=== PATIENT | female | born 1940 | race Caucasian/White ===

== ENCOUNTER → 2017-05-30 | Outpatient (CLI) | payer MEDICARE, OTHER ==
--- NOTE | 2017-05-31 09:35 | WWHP ---
CHIEF COMPLAINT: The patient is here for her routine gynecologic exam and mammogram. HPI: This is a 76 year old G4, P4, 0-0-3 with an LMP of approximately 1997. The patient is without gynecologic complaints and denies any post menopausal bleeding. PAST MEDICAL HISTORY: Chronic hypertension, hypothyroidism, elevated cholesterol, carpal tunnel syndrome, and osteoporosis. MEDICATIONS: Synthroid 75 micrograms daily, Lipitor 10 mg daily, Norvasc 10 mg daily, Advil prn, Rosibel-Milton as directed, CoQ10 100 mg daily, Vitamin D 2000 units daily. ALLERGIES: NITROGLYCERINE, CODEINE, DIAZEPAM, DARVOCET. PAST SURGICAL HISTORY: Previous appendectomy, shaka in the left femur, tonsillectomy, three sections, cholecystectomy, thyroidectomy, colonoscopy in 2009. 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 SOCIAL HISTORY: She denies tobacco, alcohol, and drug use. She is a and is not seeing anybody at this time and is not sexually active. FAMILY HISTORY: Is unknown since she is Adopted. REVIEW OF SYSTEMS: Weight has been stable, she denies respiratory or cardiac problems. GI: Occasional gastric reflux. She denies maltreatment or fall.ing. : She does have to get up to urinate at night and occasionally has to get to the bathroom right away with urgency, otherwise she denies any significant problems with urinary leakage. PHYSICAL EXAM: Blood pressure 136/64, height 4'11-1/2 inches, weight 138 pounds , temperature 96.1, pulse 71. This is a well developed, well nourished white female who is alert and oriented times 3, in no acute distress. HEENT: Within normal limits. Neck: Supple without mass or thyromegaly. CHEST AND LUNGS: Clear to auscultation. Heart: Regular rate and rhythm. Breasts: Without mass or discharge. There is an annular mole at approximately 9 o'clock position of the right breast. She states she has had this for many years and it's outer diameter is approximately 2.5 cm. The mole is brown and the inner section is flesh colored with an inner diameter of approximately 1 cm. Axillary Exam: Negative for adenopathy. Back: Negative for CVA tenderness. Abdomen: Soft, nontender, without palpable masses. Pelvic Exam: External genitalia reveals mild to moderate atrophy. There are approximately 3 small inclusion cysts in each labia. These each measure approximately 4 mm each. They are mobile and nontender, there is no erythema and have a benign appearance. Cervix and Vagina: Reveals moderate atrophy without lesions. There is no evidence of prolapse. Bimanual exam is negative for mass or tenderness. Rectal/Vaginal Examination: Is negative for mass or tenderness and is negative for occult blood. Extremities: Nontender. IMPRESSION: 1. [age] old menopausal female with benign appearing vulvar inclusion cysts which she states she has had there for many years. 2. Otherwise unremarkable gynecologic exam. 3. Mole on the right breast which is annular in shape . She states she has had this for many years. PLAN: 1. PAP smear was performed. 2. Self breast examination was discussed. 3. Mammogram will be done today. 4. We have discussed the mole on the right breast. I have recommended that she follow up with her green end man, Dr. Marti in [place] for skin evaluation and evaluation fo this mole. 5. I have recommended that she check her own blood pressure at home since she does have a blood pressure cuff and I have asked her to do this on a regular basis. She will follow up with Dr. Coronado for blood pressure elevations. 6. I have recommended flu shots in the fall and she will consider this. 7. Osteoporosis management was discussed. She will follow up with her certified orthotist practice manager for bone density testing as she has done in the past. She will also talk to them about possible medications, which they have already recommended. 8. She will return in one year. ARNOLDO
--- NOTE | 2017-05-31 12:59 | MM ---
Reason for exam: screening (asymptomatic). Last mammogram was performed 2 years ago. History: Patient is postmenopausal and history of other cancer. Took estrogen for 5 years. Physical Findings: A clinical breast exam by your physician is recommended on an annual basis and results should be correlated with mammographic findings. MG 3D Screening Mammo W/Cad Bilateral CC and MLO view(s) were taken. Prior study comparison: June 04, 2015, bilateral MG screening mammo w CAD. April 11, 2013, bilateral digital screening mammo w/CAD. There are scattered fibroglandular densities. There is no discrete abnormality. ASSESSMENT: Negative, BI-RAD 1 RECOMMENDATION: Routine screening mammogram of both breasts in 1 year.
== END | disposition home or self-care (01) ==
LOC: WWCWWP 12:30
PROVIDERS: ATTEND Obstetrics & Gynecology
DX: Z12.31 Encounter for screening mammogram for malignant neoplasm of breast (principal)
CPT/HCPCS: 77063; G0202

== ENCOUNTER 2019-01-29 10:11 | Day surgery (SDC) | payer MEDICARE, OTHER ==
[2019-01-24 15:51] VITALS: BMI 18.1
[~2019-01-29 10:11] MED LIST: HYDROmorphone 0.5 MG/0.5 ML SYRINGE IVP PRN; LIDOCAINE 1% 20 ML VIAL (10MG/ML) FOR IV START INTRADERMA PRN; MIDAZOLAM 2 MG/2 ML VIAL IV PRN; Pre Op ABX Message 1 EACH MISC MISCELLANE ONE; ceFAZolin IN SWFI 2 GM/20 ML SYRINGE IVP ONE
[2019-01-29] MEDS: LACTATED RINGERS 1,000 ML IV SCH ×2 (10:50→14:42)
[2019-01-29] MEDS: ONDANSETRON 4 MG/2 ML VIAL IVP ONE ×3 (10:51→12:40)
[2019-01-29] MEDS ORDERED: DEXAMETHASONE SOD PHOSPHATE 10 MG/ML 1 ML VIAL IV ONE (10:51)
[2019-01-29] MEDS ORDERED: PROPOFOL 10 MG/ML 20 ML VIAL IV ONE (10:53)
[2019-01-29] MEDS ORDERED: MIDAZOLAM 2 MG/2 ML VIAL ONE (10:53)
[2019-01-29] MEDS ORDERED: ePHEDrine SULFATE/0.9% NACL/PF 50 MG/5 ML SYRINGE IV ONE (10:53)
[2019-01-29] MEDS ORDERED: fentaNYL (PF) 50 MCG/ML 2 ML AMP ONE (10:53)
[2019-01-29] MEDS ORDERED: LIDOCAINE 1% INJ 10MG/ML (20 ML MDV) ONE (10:53)
[2019-01-29 11:02] LABS: Glucose,Whole Blood 96 mg/dL (75-99)
[2019-01-29] MEDS ORDERED: BUPIVACAINE (PF) 0.5% 30 ML VIAL IO ONE (11:28)
[2019-01-29 12:00] VITALS: TEMP 97.2
[2019-01-29 12:03] VITALS: RESP 16
--- NOTE | 2019-01-29 13:49 | P.OP ---
Date of Procedure: 01/29/19 Preoperative Diagnosis: 1. Torn lateral meniscus left knee 2. Torn medial meniscus left knee 3. Osteoarthritis left knee Postoperative Diagnosis: 1. Torn lateral meniscus left knee 2. Torn medial meniscus left knee 3. 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 Synovitis Procedure(s) Performed: 1. Arthroscopy of the left knee with partial lateral meniscectomy (70% of meniscus excised) 2. Partial medial meniscectomy (20% of meniscus excised) 3. Chondroplasty of the medial femoral, lateral femoral, and patellofemoral compartments 4. Partial synovectomy of the medial femoral, lateral femoral, patellofemoral compartments Anesthesia: spinal Surgeon: Mitesh Bird Estimated Blood Loss (ml): 5 Pathology: none sent Condition: stable Disposition: PACU Indications for Procedure: This is a 78-year-old female that presented to my office with pain in her left knee. MRI was performed which showed a torn medial and lateral meniscus as well as osteoarthritis of her left knee. After discussing the surgical nonsurgical treatment options with her and her daughter at length, they've decided to proceed with arthroscopic debridement of her left knee, and informed consent was obtained. Operative Findings: The operative findings are consistent with a tear of the lateral meniscus, medial meniscus, grade 2-3 chondromalacia of the medial femoral and patellofemoral compartments. 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 And also synovitis. Description of Procedure: Patient was seen and evaluated in the preoperative area, the operative site was marked with a skin marker. The patient was then brought to the operating room and given 1 g of Ancef intravenously. A spinal anesthetic was administered by the anesthesia department. Tourniquet was placed on the left upper thigh and the left lower extremity was then prepped and draped in usual sterile fashion. A universal timeout was then performed confirming the patient's name, surgical site, ALLERGIES, and consent. The limb was then exsanguinated and tourniquet insufflated to 250 mmHg. Standard inferior medial and inferior lateral portals were established in the knee. The trochar was inserted in the inferolateral portal. Examination began at the patellofemoral joint. There is noted to be grade 2-3 chondral malacia the patellofemoral compartment and a moderate amount of synovitis. Next the medial compartment was visualized. There was a tear of the posterior horn of the medial meniscus. There was grade 2-3 chondral malacia the mediofemoral compartment and synovitis. The notch area was then visualized and ACL PCL were intact. The Lateral compartment was then visualized. There was a large tear of the lateral meniscus, as well as grade 4 chondral malacia changes of the lateral femoral compartment. There is also a mild amount of synovitis. Next, using an arthroscopic shaver and a biter, partial medial meniscectomy was performed stable margins. Approximately 20% of meniscus was excised. A partial lateral meniscectomy was also performed, with approximately 70% of meniscus excised. A partial synovectomy is performed the medial femoral, lateral femoral, patellofemoral compartments. Chondroplasty was also performed of the medial femoral, lateral femoral, and patellofemoral compartments of the knee. Knee was then copiously irrigated, instruments removed, incisions were closed with 4-0 nylon. 30 mL of quarter percent plain Marcaine were injected sterilely into the surgical area. A sterile dressing was then applied, and the tourniquet was released. Patient was then transferred to recovery room in stable condition.
[2019-01-29] MEDS ORDERED: PROMETHAZINE INJ 25 MG/ML 1 ML VIAL IVPB ONE (14:15)
[2019-01-29 14:34] VITALS: BP 108/66; PULSE 92
== END 2019-01-29 15:38 | disposition home or self-care (01) ==
LOC: OR 10:11
PROVIDERS: ATTEND Orthopaedic Surgery
DX: S83.282A Other tear of lateral meniscus, current injury, left knee, initial encounter (principal); S83.242A Other tear of medial meniscus, current injury, left knee, initial encounter; M65.88 Other synovitis and tenosynovitis, other site; M17.12 Unilateral primary osteoarthritis, left knee; M21.062 Valgus deformity, not elsewhere classified, left knee; E78.2 Mixed hyperlipidemia; K21.9 Gastro-esophageal reflux disease without esophagitis; E03.9 Hypothyroidism, unspecified; I10 Essential (primary) hypertension; F41.9 Anxiety disorder, unspecified; K58.9 Irritable bowel syndrome, unspecified; M81.0 Age-related osteoporosis without current pathological fracture; I25.10 Atherosclerotic heart disease of native coronary artery without angina pectoris; H91.90 Unspecified hearing loss, unspecified ear; M19.90 Unspecified osteoarthritis, unspecified site; F32.9 Major depressive disorder, single episode, unspecified; G43.909 Migraine, unspecified, not intractable, without status migrainosus; Z95.5 Presence of coronary angioplasty implant and graft; Z79.1 Long term (current) use of non-steroidal anti-inflammatories (NSAID); Z79.890 Hormone replacement therapy; Z79.891 Long term (current) use of opiate analgesic; Z79.899 Other long term (current) drug therapy; Z88.5 Allergy status to narcotic agent; Z88.8 Allergy status to other drugs, medicaments and biological substances; Z88.1 Allergy status to other antibiotic agents; Z88.0 Allergy status to penicillin
CPT/HCPCS: 29880; J2250; J1100; J2550; J2405; J2001; J3010; J2704; J1170; J0690

== ENCOUNTER → 2019-07-16 | Outpatient (CLI) | payer MEDICARE, OTHER ==
[2019-07-16 11:15] VITALS: BP 130/76; PULSE 74; RESP 18; TEMP 98; BMI 26.9
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
--- NOTE | 2019-07-17 13:30 | MM ---
Reason for exam: screening (asymptomatic). Last mammogram was performed 1 year and 1 month ago. History: Patient is postmenopausal and history of other cancer. Took estrogen for 5 years. Physical Findings: A clinical breast exam by your physician is recommended on an annual basis and results should be correlated with mammographic findings. MG 3D Screening Mammo W/Cad Bilateral CC and MLO view(s) were taken. Prior study comparison: June 05, 2018, bilateral MG 3d screening mammo w/cad. May 30, 2017, bilateral MG 3d screening mammo w/cad. The breast tissue is heterogeneously dense. This may lower the sensitivity of mammography. Asymmetric breast tissue left subareolar. Right outer skin lesion. ASSESSMENT: Benign, BI-RAD 2 RECOMMENDATION: Routine screening mammogram of both breasts in 1 year.
== END ==
LOC: WWCWWP 10:47
PROVIDERS: ATTEND Obstetrics & Gynecology
DX: Z12.31 Encounter for screening mammogram for malignant neoplasm of breast (principal); N88.8 Other specified noninflammatory disorders of cervix uteri
CPT/HCPCS: 76830; 76856; 77063; 77067

== ENCOUNTER 2020-03-10 10:06 | Day surgery (SDC) | payer MEDICARE, OTHER ==
[2020-03-05 15:06] VITALS: BMI 25.8
[~2020-03-10 10:06] MED LIST changes: -HYDROmorphone 0.5 MG/0.5 ML SYRINGE IVP PRN; +LACTATED RINGERS 1,000 ML IV SCH; +LIDOCAINE 1% (10MG/ML) FOR IV START INTRADERMA PRN; -LIDOCAINE 1% 20 ML VIAL (10MG/ML) FOR IV START INTRADERMA PRN; -MIDAZOLAM 2 MG/2 ML VIAL IV PRN; -Pre Op ABX Message 1 EACH MISC MISCELLANE ONE; -ceFAZolin IN SWFI 2 GM/20 ML SYRINGE IVP ONE
[2020-03-10] MEDS ORDERED: ONDANSETRON 4 MG/2 ML VIAL IVP ONE (10:45)
[2020-03-10] MEDS ORDERED: PROPOFOL 10 MG/ML 20 ML VIAL IV ONE (10:48)
[2020-03-10 10:51] VITALS: TEMP 98.3
[2020-03-10 10:59] LABS: Glucose,Whole Blood 91 mg/dL (75-99)
--- NOTE | 2020-03-10 11:21 | P.PCN ---
Date of Procedure: 03/10/20 Preoperative Diagnosis: GERD, abdominal pain, colon cancer screening Postoperative Diagnosis: GERD, abdominal pain, colon cancer screening, esophagitis, hiatal hernia, gastritis, diverticulosis Procedure(s) Performed: EGD with biopsy and colonoscopy Anesthesia: MAC Surgeon: Yue Alonzo Pathology: other Condition: stable Disposition: PACU Indications for Procedure: Patient presented for colon cancer screening. She does his abdominal pain and reflux. Description of Procedure: The patient's taken the endoscopy suite were gastroscope is passed per mouth to the third and fourth portions of the duodenum. The pharynx is unremarkable. The upper esophagus is without evidence of esophagitis or mass lesion. She has some mild inflammatory change at the GE junction and cold biopsies were obtained. There is evidence of a fixed hiatal/paraesophageal hernia. There is diffuse gastritis throughout the stomach with punctate areas that have bled. Multiple cold biopsies were obtained. The pylorus and duodenum were unremarkable. The villous pattern of the duodenum appears normal. She is then repositioned in a colonoscope is passed per rectum to the cecum. She had an excellent prep. There is diverticulosis noted in the sigmoid colon. There is also some diverticulosis in the ascending colon. The colon is otherwise without evidence of polyp, mass lesion, ulcer, stricture or other abnormality. A small hypertrophied anal papillae was seen on retroflexion of the scope. She tolerated the procedure without difficulty and was taken recovery room in satisfactory condition. We'll call with the report of the biopsies and a further recommendations to follow. Plan - Discharge Summary New Discharge Prescriptions: No Action amLODIPine [Norvasc] 10 mg PO HS Ubidecarenone [Co Q-10] 100 mg PO HS Atorvastatin Calcium [Lipitor] 10 mg PO HS Levothyroxine Sodium [Synthroid] 75 mcg PO DAILY Cholecalciferol (Vitamin D3) [Vitamin D3] 4,000 unit PO DAILY Meclizine [Antivert] 25 mg PO TID PRN PRN Reason: Vertigo Ascorbic Acid [Vitamin C] 1,000 mg PO DAILY Magnesium 400 mg PO DAILY Famotidine [Pepcid] 20 mg PO BID Cyanocobalamin (Vitamin B-12) [Vitamin B-12] 2,500 mcg PO DAILY Discharge Medication List Atorvastatin Calcium [Lipitor] 10 mg PO HS 06/15/16 [History] Ubidecarenone [Co Q-10] 100 mg PO HS 06/15/16 [History] amLODIPine [Norvasc] 10 mg PO HS 06/15/16 [History] Cholecalciferol (Vitamin D3) [Vitamin D3] 4,000 unit PO DAILY 06/05/18 [History] Levothyroxine Sodium [Synthroid] 75 mcg PO DAILY 06/05/18 [History] Ascorbic Acid [Vitamin C] 1,000 mg PO DAILY 01/24/19 [History] Magnesium 400 mg PO DAILY 01/24/19 [History] Meclizine [Antivert] 25 mg PO TID PRN 01/24/19 [History] Famotidine [Pepcid] 20 mg PO BID 07/16/19 [History] Cyanocobalamin (Vitamin B-12) [Vitamin B-12] 2,500 mcg PO DAILY 03/05/20 [History]
[2020-03-10 11:45] VITALS: BP 127/60; PULSE 72; RESP 16
== END 2020-03-10 12:12 | disposition home or self-care (01) ==
LOC: ORWHC2ENDO 10:06
PROVIDERS: ATTEND Surgery
DX: K21.0 Gastro-esophageal reflux disease with esophagitis (principal); K31.9 Disease of stomach and duodenum, unspecified; K44.9 Diaphragmatic hernia without obstruction or gangrene; K29.70 Gastritis, unspecified, without bleeding; K57.30 Diverticulosis of large intestine without perforation or abscess without bleeding; I38 Endocarditis, valve unspecified; E07.9 Disorder of thyroid, unspecified; M81.0 Age-related osteoporosis without current pathological fracture; M19.90 Unspecified osteoarthritis, unspecified site; I10 Essential (primary) hypertension; E78.00 Pure hypercholesterolemia, unspecified; M10.9 Gout, unspecified; I25.10 Atherosclerotic heart disease of native coronary artery without angina pectoris; E78.5 Hyperlipidemia, unspecified; Z79.899 Other long term (current) drug therapy; Z79.890 Hormone replacement therapy; Z95.5 Presence of coronary angioplasty implant and graft; Z98.890 Other specified postprocedural states; Z90.89 Acquired absence of other organs; Z90.49 Acquired absence of other specified parts of digestive tract; Z88.5 Allergy status to narcotic agent; Z88.8 Allergy status to other drugs, medicaments and biological substances; Z87.81 Personal history of (healed) traumatic fracture
CPT/HCPCS: 88305; 45378; 43239; J2405; J2704

== ENCOUNTER → 2020-03-21 | Outpatient (CLI) | payer MEDICARE, OTHER | END | disposition home or self-care (01) | LOC: RADMRIMAIN 12:23 | PROVIDERS: ATTEND Physical Medicine & Rehabilitation | DX: Z53.9 Procedure and treatment not carried out, unspecified reason (principal) ==

== ENCOUNTER → 2020-04-07 | Outpatient (CLI) | payer MEDICARE, OTHER ==
--- NOTE | 2020-04-07 16:22 | CT ---
EXAMINATION TYPE: CT lumbar spine wo con DATE OF EXAM: 04/07/2020 COMPARISON: None HISTORY: 79-year-old female Low back pain x 2 months. TECHNIQUE: Contiguous axial scanning of the lumbar spine without IV contrast. Coronal and sagittal re constructions performed. CT DLP: 826 mGycm Automated exposure control for dose reduction was used. FINDINGS: Partially visualized left upper pole renal cyst measuring up to 5.2 cm. Moderate prostatic calcificat ions abdominal aorta without aneurysm. There seems to be fairly large stool burden. Mottled density of the right side of the L4 vertebral body. Possible subtle fracture line along the r ight anterior corner of the superior endplate, sagittal image 32 and coronal image 13. Axial image 44 . Otherwise, vertebral body heights are preserved. Moderate degenerative disc disease throughout, more severe at L5-S1 with disc height loss and vacuum. Bulging disks at multiple levels. Advanced hypertrophic facet arthropathy mid to lower lumbar spine with grade 1 anterolisthesis L4-L5 and L5-S1. While disc bulges are present, no large focal disc herniation or significant spinal canal stenosis is apparent by CT. On the right, changes result in moderate neuroforaminal stenosis at L5-S1 and mild at L3-L4 levels. On the left, changes result in moderate neuroforaminal stenosis at L4-L5, mild to moderate at L3-L4, and mild at additional levels. IMPRESSION: 1. MOTTLED DENSITY OF THE RIGHT SIDE OF THE L4 VERTEBRAL BODY. POSSIBLE FRACTURE FROM THE RIGHT ANTER IOR CORNER OF ITS SUPERIOR ENDPLATE. CONTRAST ENHANCED MRI TO FURTHER EVALUATE. 2. OVERALL VERTEBRAL BODY HEIGHTS ARE MAINTAINED. 3 MODERATE MULTILEVEL DEGENERATIVE DISC DISEASE, MORE ADVANCED AT L5-S1. 4. HYPERTROPHIC FACET ARTHROPATHY MID TO LOWER LUMBAR SPINE WITH GRADE 1 ANTEROLISTHESIS L4-L5 AND L5 -S1. 5. BULGING DISKS WITHOUT SIGNIFICANT SPINAL CANAL STENOSIS. 6. STABLE MILD AND MODERATE NEURAL FORAMINAL STENOSES OUTLINED ABOVE, GREATEST IN THE LOWER LUMBAR SPINE.
== END | disposition home or self-care (01) ==
LOC: RADCTMAIN 14:44
PROVIDERS: ATTEND Physical Medicine & Rehabilitation
DX: M48.061 Spinal stenosis, lumbar region without neurogenic claudication (principal); M51.36 Other intervertebral disc degeneration, lumbar region; M51.37 Other intervertebral disc degeneration, lumbosacral region; M43.16 Spondylolisthesis, lumbar region; M43.17 Spondylolisthesis, lumbosacral region; M46.96 Unspecified inflammatory spondylopathy, lumbar region; Z95.9 Presence of cardiac and vascular implant and graft, unspecified; K21.9 Gastro-esophageal reflux disease without esophagitis
CPT/HCPCS: 72131

== ENCOUNTER → 2020-04-09 | Outpatient (CLI) | payer MEDICARE, OTHER ==
--- NOTE | 2020-04-09 15:47 | NM ---
EXAMINATION TYPE: NM bone scan whole body DATE OF EXAM: 04/09/2020 COMPARISON: CT 04/07/2020 HISTORY: Scoliosis, low back pain, spondylosis Delayed whole-body scanning was performed following the injection of 24.1 mCi Tc 99m MDP. Images acq uired 3 hours post injection. FINDINGS: Soft tissue uptake is normal. There is a spinal curvature present. Uptake within the feet, ankles, kn ees, wrists and hands, shoulders and elbows is likely degenerative. There is uptake in the lower lumb ar spine, lumbosacral junction consistent with the degenerative disc disease seen with spondylosis, m ultilevel listhesis and facet arthropathy, compression deformity noted at L4 superiorly and likely wu perior endplate L5. IMPRESSION: Superior endplate compression fractures. Osteoarthritis. Degenerative disc disease, facet arthropathy . Scoliosis.
== END | disposition home or self-care (01) ==
LOC: RADNMMAIN 10:36
PROVIDERS: ATTEND Physical Medicine & Rehabilitation
DX: M51.37 Other intervertebral disc degeneration, lumbosacral region (principal); M19.90 Unspecified osteoarthritis, unspecified site; M41.86 Other forms of scoliosis, lumbar region; M16.12 Unilateral primary osteoarthritis, left hip; M47.817 Spondylosis without myelopathy or radiculopathy, lumbosacral region; M41.26 Other idiopathic scoliosis, lumbar region; M43.16 Spondylolisthesis, lumbar region; M48.062 Spinal stenosis, lumbar region with neurogenic claudication; R20.2 Paresthesia of skin
CPT/HCPCS: 78306; A9503

== ENCOUNTER → 2021-01-29 | Outpatient (CLI) | payer MEDICARE, OTHER ==
--- NOTE | 2021-01-29 16:08 | NM ---
EXAMINATION TYPE: NM bone scan whole body DATE OF EXAM: 01/29/2021 COMPARISON: Bone scan 04/09/2020, CT 04/07/2020 HISTORY: Low back pain Delayed whole-body scanning was performed following the injection of 24.0 mCi Tc 99m MDP. Images acq uired 3 hours post injection. FINDINGS: There is a spinal curvature. Soft tissue uptake is normal. Uptake along the lower lumbar spine is pre sent greater on the right posterior elements region. Uptake within the feet, knees, wrists, shoulders is likely degenerative. Uptake in the cervical spine, thoracic spine is similar and is likely degene rative. IMPRESSION: The endplate compression fracture uptake has improved in the lower lumbar spine, there is persistent degenerative uptake, possibly facet arthropathy uptake in the lower lumbar spine on the right. There is a spinal curvature.
== END | disposition home or self-care (01) ==
LOC: RADNMMAIN 11:46
PROVIDERS: ATTEND Orthopaedic Surgery Orthopaedic Surgery of the Spine
DX: M51.36 Other intervertebral disc degeneration, lumbar region (principal); M43.8X6 Other specified deforming dorsopathies, lumbar region
CPT/HCPCS: 78306; A9503

== ENCOUNTER → 2021-04-12 | Outpatient (CLI) | payer MEDICARE, OTHER ==
--- NOTE | 2021-04-13 09:49 | NM ---
EXAMINATION TYPE: NM bone scan whole body DATE OF EXAM: 04/12/2021 COMPARISON: 01/29/2021, 04/09/2020 nuclear medicine bone scans. 04/07/2020 CT lumbar spine. HISTORY: Collapsed vertebra, lumbar region, subsequent encounter for fracture with routine healing. F all 2 weeks ago, landed on left hip. Pain in lower back, hips, left leg. History of osteoarthritis, l eft femur fracture 15 years ago with surgical shaka placement. Delayed whole-body scanning was performed following the injection of 23.166 mCi Tc 99m MDP. Images a cquired 4 hours post injection. FINDINGS: There is newly demonstrated marked uptake at the left intertrochanteric hip. There is a focus of upta ke at the left anterior chest in the region of likely left rib 6. The uptake of the lower lumbar spine has decreased versus 04/09/2020, with persistent uptake which may be degenerative. There is redemonstrated degenerative uptake of the shoulders, sternoclavicular joint s, knees, and feet. Redemonstrated likely degenerative uptake of the cervical spine and thoracic spin e. IMPRESSION: 1. New marked uptake of the left hip intertrochanteric region likely represents acute fracture defor mity. Recommend correlation with left hip dedicated radiographs. 2. Focal activity of the left anterior chest, likely in the region of left rib 6, may represent frac ture deformity. Recommend correlation with point tenderness and radiographs as clinically indicated.
== END | disposition home or self-care (01) ==
LOC: RADNMMAIN 11:07
PROVIDERS: ATTEND Orthopaedic Surgery Orthopaedic Surgery of the Spine
DX: M54.5 Low back pain (principal); M25.551 Pain in right hip; M25.552 Pain in left hip; W19.XXXA Unspecified fall, initial encounter
CPT/HCPCS: 78306; A9503

== ENCOUNTER → 2021-04-15 | Outpatient (CLI) | payer MEDICARE, OTHER ==
--- NOTE | 2021-04-15 12:25 | CT ---
EXAMINATION TYPE: CT hip LT wo con DATE OF EXAM: 04/15/2021 COMPARISON: Nuclear medicine bone scan 04/12/2021, bone scan 04/09/2020, pelvis x-ray 02/19/2020 HISTORY: Abn bone scan, displaced intertrochanteric fx Lt hip, bilateral hip pain CT DLP: 684 mGycm Automated exposure control for dose reduction was used. Contrast: None Technique: Axial images 3 mm thick sections. Reconstructed images in the coronal and sagittal planes. FINDINGS: Medullary shaka is present within the femur. No acute fractures are evident. An old distal femoral frac ture is evident. No lucency adjacent to the medullary shaka is evident. Positioning appears stable from prior x-rays. No suspicious cortical erosions are evident. Femoral head articulates with the acetabulum. Femoral neck appears normal. IMPRESSION: 1. NO ACUTE OSSEOUS ABNORMALITY. 2. OLD LEFT FEMORAL FRACTURE. 3. NO ACUTE OSSEOUS ABNORMALITY TO ACCOUNT FOR CHANGE IN BONE SCAN FINDINGS AT THE INTERTROCHANTERIC REGION. CONSIDER FOLLOW-UP PLAIN FILMS FOR PERSISTENT SYMPTOMS
== END | disposition home or self-care (01) ==
LOC: RADCTMAIN 11:11
PROVIDERS: ATTEND Orthopaedic Surgery
DX: S72.142A Displaced intertrochanteric fracture of left femur, initial encounter for closed fracture (principal)

== ENCOUNTER 2022-05-02 17:37 | Emergency (ER) | payer MEDICARE, OTHER ==
[2022-05-02] MEDS ORDERED: ONDANSETRON 4 MG/2 ML VIAL IVP STA ×3 (19:37→21:44)
[2022-05-02] MEDS ORDERED: SODIUM CHLORIDE 0.9% 500 ML 500 ML IV STA (19:37)
[2022-05-02 19:57] LABS: Basophils % (A) 0 %; Eosinophils % (A) 0 %; HCT 42.5 % (34.0-46.0); HGB 14.4 gm/dL (11.4-16.0); Lymphocytes # (A) 0.9 k/uL (1.0-4.8); Lymphocytes % (A) 7 %; MCH 30.9 pg (25.0-35.0); MCHC 33.8 g/dL (31.0-37.0); MCV 91.3 fL (80.0-100.0); Mean Platelet Volume 7.6; Monocytes # (A) 0.2 k/uL (0-1.0); Monocytes % (A) 2 %; Neutrophils # (A) 11.1 k/uL (1.3-7.7); Neutrophils % (A) 90 %; Platelet Count 334 k/uL (150-450); RBC 4.65 m/uL (3.80-5.40); RDW 13.2 % (11.5-15.5); WBC 12.3 k/uL (3.8-10.6)
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
[2022-05-02 20:06] LABS: ALT 23 U/L (4-34); AST 29 U/L (14-36); African American GFR (CKD) >90 (>60 ml/min/1.73 sqM); Albumin 4.6 g/dL (3.5-5.0); Alkaline Phosphatase 134 U/L (38-126); Anion Gap 8 mmol/L; Blood Urea Nitrogen 15 mg/dL (7-17); Calcium 9.6 mg/dL (8.4-10.2); Carbon Dioxide 24 mmol/L (22-30); Chloride 104 mmol/L (98-107); Glucose 135 mg/dL (74-99); Lipase 88 U/L (23-300); Non-African American GFR(CKD) >90 (>60 ml/min/1.73 sqM); Potassium 3.8 mmol/L (3.5-5.1); Sodium 136 mmol/L (137-145); Total Bilirubin 0.6 mg/dL (0.2-1.3); Total Protein 8.1 g/dL (6.3-8.2)
--- NOTE | 2022-05-02 20:44 | XR ---
EXAMINATION TYPE: XR chest 2V DATE OF EXAM: 05/02/2022 COMPARISON: NONE HISTORY: Chest pain TECHNIQUE: FINDINGS: There is no heart failure nor confluent pneumonic infiltrate. Costophrenic angles are clear . Bony thorax is intact. No pleural effusion. IMPRESSION: No active cardiopulmonary disease.
[2022-05-02 21:51] LABS: Appearance,Urine Clear (Clear); Bilirubin,Urine Negative (Negative); Blood,Urine Negative (Negative); Color,Urine Yellow; Glucose,Urine (UA) Negative (Negative); Ketones,Urine 2+ (Negative); Leukocyte Esterase,Urine Negative (Negative); Nitrite,Urine Negative (Negative); PH, Urine 6.5 (5.0-8.0); Protein,Urine Trace (Negative); Urobilinogen,Urine <2.0 mg/dL (<2.0)
[2022-05-03] MEDS ORDERED: ACETAMINOPHEN TAB 325 MG TAB PO STA (00:39)
[2022-05-03] MEDS ORDERED: ONDANSETRON 4 MG ODT STARTER PACK 2 TAB BTL PO STA (00:39)
[2022-05-03 00:55] VITALS: BP 155/84; PULSE 89; RESP 22; TEMP 98.5
== END 2022-05-03 00:54 | disposition home or self-care (01) ==
LOC: EC 17:37
DX: R11.2 Nausea with vomiting, unspecified (principal); I10 Essential (primary) hypertension; E03.9 Hypothyroidism, unspecified; E78.5 Hyperlipidemia, unspecified; K21.9 Gastro-esophageal reflux disease without esophagitis; M19.90 Unspecified osteoarthritis, unspecified site; Z88.8 Allergy status to other drugs, medicaments and biological substances; Z88.6 Allergy status to analgesic agent; Z91.018 Allergy to other foods; Z88.5 Allergy status to narcotic agent; Z91.02 Food additives allergy status; Z79.899 Other long term (current) drug therapy; Z79.890 Hormone replacement therapy
CPT/HCPCS: 36415; 93005; 80053; 83690; 84484; 85025; 81003; 87635; 71046; 99284; 96374; 96376; 96361; J2405; S0119

== ENCOUNTER → 2023-02-21 | Outpatient (CLI) | payer MEDICARE, OTHER ==
--- NOTE | 2023-02-21 14:17 | P.PN ---
Progress Note - Text Progress Note Date: 02/21/23 I spoke with the patient by phone on 02/21/2023. She has not been seen here since 2019. At that time she was having abdominal pain and pelvic ultrasound revealed moderate endometrial fluid. She was referred to Dr. Zhu for this. Dr. Zhu suggested conservative management and the plan was to see her again in 6 months. The patient believes she has not had follow-up with Dr. Zhu. She states she has been having right lower quadrant abdominal pain. She was advised to make an appointment to see Dr. Zhu since she was seeing her for the abdominal pain and the endometrial fluid. She states she will make this appointment.
== END ==
LOC: WWCWWP 13:28
PROVIDERS: ATTEND Obstetrics & Gynecology
DX: Z01.419 Encounter for gynecological examination (general) (routine) without abnormal findings (principal); Z88.5 Allergy status to narcotic agent; Z88.1 Allergy status to other antibiotic agents; Z88.6 Allergy status to analgesic agent; Z91.048 Other nonmedicinal substance allergy status; Z91.018 Allergy to other foods; Z88.8 Allergy status to other drugs, medicaments and biological substances

== ENCOUNTER → 2025-01-16 | Outpatient (CLI) | payer MEDICARE, OTHER ==
[2025-01-16 12:20] LABS: African American GFR (CKD) >90 (>60 ml/min/1.73 sqM); Blood Urea Nitrogen 21 mg/dL (7-17); Non-African American GFR(CKD) 85 (>60 ml/min/1.73 sqM)
--- NOTE | 2025-01-16 14:28 | CT ---
EXAMINATION TYPE: CT cervical spine wo con DATE OF EXAM: 01/16/2025 COMPARISON: None CLINICAL INDICATION: Female, 84 years old with history of R68.89 OTHER SIGNS AND SX; PHH, TECHNIQUE: CT scan of the cervical spine is obtained without contrast, axial images are obtained, sa gittal and coronal reformatted images are also reviewed. CT DLP: mGycm CT CTDI: mGy Automated exposure control for dose reduction was used. FINDINGS: The craniovertebral junction relationships and prevertebral soft tissues are normal. There is spontaneous or autofusion of the C4-5 vertebral segments. There is severe disc space narrowi ng, spondylosis indicating severe degenerative disease at C3-4, C5-6 and C6-7 levels. Secondary to th e effusion and severe degenerative disc disease, there is loss of the cervical lordosis and mild cerv ical kyphosis. There is marked facet arthropathy and uncovertebral joint arthropathy throughout the cervical spine. There is no significant bony encroachment of the cervical canal. There is moderate bony neural encroa chment at C5-6 bilaterally and mild bony neuroforaminal encroachment at the C3-4 levels bilaterally. There are no large cervical disc herniations although this technique is limited for herniation detect ion. IMPRESSION: 1. Marked degenerative disc disease throughout the cervical spine with autofusion at the C4-5 levels resulting in cervical kyphosis. 2. Marked degenerative arthritis of the facet joints and uncovertebral joints throughout the cervical spine. 3. Mild to moderate multilevel neural foraminal stenosis as described above. 4. No bony encroachment of the cervical canal. [facility], , 01/16/2025 2:26 PM
--- NOTE | 2025-01-16 14:36 | CT ---
EXAMINATION TYPE: CT angio head neck DATE OF EXAM: 01/16/2025 COMPARISON: None CLINICAL INDICATION: Female, 84 years old with history of R68.89 OTHER SIGNS AND SX; PHH, TECHNIQUE: CTA scan of the head and neck is without IV contrast administration. 3-D postprocessing w as performed.. CT DLP: mGycm CT CTDI: mGy Automated exposure control for dose reduction was used. NASCET criteria was used in interpretation of this exam? FINDINGS: The brachiocephalic origins are widely patent and no significant stenosis. There is heavily calcified plaque at the carotid bifurcations resulting in a mild less than 50% left internal carotid artery stenosis and severe, approximately 70-80% right internal carotid artery steno sis.. Intracranially, there is no stenosis, segmental occlusion, sizable aneurysm sac or vascular malformat ion. IMPRESSION:. 1. Mild less than 50% left internal carotid artery stenosis. 2. Severe approximately 70-80% right internal carotid artery stenosis. 3. No sizable aneurysm sac, vascular malformation or occlusive disease intracranially. NASCET criteria was used in interpretation of this exam? [facility], , 01/16/2025 2:34 PM
== END | disposition home or self-care (01) ==
LOC: RADCTMAIN 11:26
PROVIDERS: ATTEND Psychiatry & Neurology Neurology
DX: M50.321 Other cervical disc degeneration at C4-C5 level (principal); I65.23 Occlusion and stenosis of bilateral carotid arteries; M47.812 Spondylosis without myelopathy or radiculopathy, cervical region; M99.71 Connective tissue and disc stenosis of intervertebral foramina of cervical region; R68.89 Other general symptoms and signs
CPT/HCPCS: 82565; 84520; 72125; 70496; 70498; 36415; Q9967